=== PATIENT | male | born 1960 | race African-American/Black ===

== ENCOUNTER 2018-09-20 10:38 | Emergency (ER) | payer SELFPAY ==
--- NOTE | 2018-09-20 11:39 | RAD ---
RIGHT KNEE 4 VIEWS: Date: 09/20/18 HISTORY: Right knee pain. FINDINGS/IMPRESSION: Mild to moderate degenerative changes are present. No fracture, dislocation, or bony destruction iden tified. POS: [facility]
== END 2018-09-20 12:08 | disposition home or self-care (01) ==
LOC: ERS 10:38
DX: M25.561 Pain in right knee (principal); I10 Essential (primary) hypertension; F41.9 Anxiety disorder, unspecified; F32.9 Major depressive disorder, single episode, unspecified
CPT/HCPCS: 99281

== ENCOUNTER 2018-09-23 09:34 | Emergency (ER) | payer SELFPAY ==
[2018-09-23] MEDS ORDERED: Ketorolac Tromethamine 30 MG/ML VIAL ONE (10:14)
--- NOTE | 2018-09-23 10:26 | RAD ---
F4 views right knee INDICATION: Right knee pain COMPARISON: Prior exam dated 09/20/2018. FINDINGS: There is moderate to severe osteoarthrosis of the right knee. There is mild joint capsular distention. No acute fracture or subluxation is evident. IMPRESSION: Moderate to severe right knee osteoarthrosis with mild joint capsular distention.
== END 2018-09-23 10:49 | disposition home or self-care (01) ==
LOC: ERS 09:34
DX: M17.11 Unilateral primary osteoarthritis, right knee (principal); I10 Essential (primary) hypertension; F41.9 Anxiety disorder, unspecified; F32.9 Major depressive disorder, single episode, unspecified
CPT/HCPCS: 96372; J1885

== ENCOUNTER 2019-04-03 12:44 | Emergency (ER) | payer SELFPAY ==
[2019-04-03 13:33] LABS: #Basophils 0.1 thou/uL (0.0-0.2); #Eosinphils 0.1 thou/uL (0.0-0.7); #Lymphocytes 1.6 thou/uL (1.20-3.40); #Monocytes 0.7 thou/uL (0.11-0.59); #Neutrophils 4.1 thou/uL (1.40-6.50); %Eosinophils 1.6 % (0.0-10.0); %Monocytes 10.1 % (0.0-10.0); %Neutrophils 62.3 % (42.0-75.0); Hemoglobin 15.9 g/dL (14.0-18.0); Mean Corpuscular HGB CONC 32.6 g/dL (32.0-36.0); Mean Corpuscular Hemoglobin 32.5 pg (27.0-31.0); Mean Corpuscular Volume 99.6 fL (78.0-98.0); Mean Platelet Volume 7.1 fL (7.4-10.4); Platelet Count 206 thou/uL (130-400); RBC Distribution Width 13.1 % (11.5-14.5); Red Blood Cell (RBC) Count 4.89 mill/uL (4.70-6.10); White Blood Cell (WBC) Count 6.6 thou/uL (4.8-10.8)
--- NOTE | 2019-04-03 13:36 | RAD ---
Chest one view HISTORY: Dyspnea. FINDINGS: No comparison. Cardiac silhouette is magnified and upper limits of normal in size. Pulmonar y vasculature is unremarkable. Mediastinum is midline. No lobar consolidation or evidence of pneumothorax. IMPRESSION: No active cardiopulmonary abnormalities are demonstrated.
[2019-04-03 13:56] LABS: ALT (SGPT) 34 U/L (8-55); AST (SGOT) 25 U/L (5-34); Alkaline Phosphatase 101 U/L (40-110); Anion Gap 10 mmol/L (10-20); BUN (Urea Nitrogen) 15 mg/dL (8.4-25.7); Bilirubin, Total 0.5 mg/dL (0.2-1.2); CK (CPK) 256 U/L (30-200); Calc. Creatinine Clearance 0 mL/min (70-130); Carbon Dioxide 27 mmol/L (22-29); Chloride 106 mmol/L (98-107); Estimated GFR-MDRD Greater than 90; Glucose 99 mg/dL (70-105); Lipase 31 U/L (8-78); Potassium 4.4 mmol/L (3.5-5.1); Sodium 139 mmol/L (136-145)
--- NOTE | 2019-04-03 14:57 | CT ---
CT arteriogram chest with IV contrast and 3-D imaging HISTORY: Chest pain. Dyspnea. FINDINGS: There is good contrast opacification of the pulmonary arteries and thoracic aorta with norm al branching of the great vessels at the aortic arch. No pleural fluid, pneumothorax, or mediastinal adenopathy. No lobar consolidation. IMPRESSION: Normal exam.
== END 2019-04-03 16:20 | disposition home or self-care (01) ==
LOC: ERS 12:44
DX: R06.00 Dyspnea, unspecified (principal); I10 Essential (primary) hypertension; F41.9 Anxiety disorder, unspecified; F32.9 Major depressive disorder, single episode, unspecified
CPT/HCPCS: 36415; 71045; 71275; 80053; 82550; 83690; 83880; 84484; 85025; 85379; 93005; 96360; 96361